=== PATIENT | female | born 1960 | race Caucasian/White ===

== ENCOUNTER 2016-06-03 10:48 | Emergency (ER) | payer MEDICARE ==
[~2016-06-03] VITALS: Ht 162.6 cm; Wt 91.6 kg
[~2016-06-03 10:48] MED LIST: ASPI81TA9 PO; ATOR40TA59 PO; GABA-586 PO; LISI10TA2 PO; LOSA25TA PO; METF500T4 PO; PANT40TA5 PO; SERT100T PO; TRAM50TA PO; TRAZ50TA15 PO
--- NOTE | 2016-06-03 12:38 | PHYS DOC ---
Past Medical History Past Medical History: Asthma, Bronchitis, Diabetes-Type II, Hypertension Past Surgical History: Cholecystectomy, Alcohol Use: None Drug Use: None Adult General Chief Complaint Chief Complaint: OTHER COMPLAINTS HPI HPI 56-year-old female presenting to the emergency department today with left neck pain and swelling fevers chills and a cough for the past few days. She reports having more difficulty swallowing however is able to swallow her secretions and is without stridor. She is not in respiratory distress. Onset 45 days. Location left neck. Duration intermittent. No alleviating factors present. Review of systems is negative for chest pain abdominal pain nausea vomiting diarrhea. All other review of systems is negative unless otherwise noted in history of present illness. Review of Systems Review of Systems SEE ABOVE. Current Medications Current Medications Current Medications Medications (Trade) Dose Ordered Sig/Adriel Start Time Stop Time Status Last Admin Dose Admin Hydromorphone HCl (Dilaudid) 0.5 mg PRN Q1HR PRN 06/03/16 13:30 06/03/16 14:50 DC 06/03/16 13:40 0.5 MG Info (Do NOT chart on this entry -- for MONITORING) 1 each PRN DAILY PRN 06/03/16 13:15 06/03/16 14:50 DC Iohexol (Omnipaque 300 Mg/ml) 70 ml 1X ONCE 06/03/16 13:15 06/03/16 13:16 DC 06/03/16 13:23 70 ML Allergies Allergies Allergies Coded Allergies Type Severity Reaction Last Updated Verified No Known Drug Allergies 04/24/16 No Physical Exam Physical Exam Constitutional: Well developed, well nourished, no acute distress, non-toxic appearance. HENT: Normocephalic, atraumatic, bilateral external ears normal, oropharynx moist, no oral exudates, nose normal. [] Eyes: PERRLA, EOMI, conjunctiva normal, no discharge. Neck: Normal range of motion, patient's left neck is swollen. It is tender to touch. There is no overlying erythema. Skin is normal in color. The patient does not have stridor is swallowing secretions without any difficulty. She does not have a hoarse voice. Her airway is patent. Cardiovascular:Heart rate regular rhythm, no murmur [] Lungs & Thorax: Bilateral breath sounds clear to auscultation [] Abdomen: Bowel sounds normal, soft, no tenderness, no masses, no pulsatile masses. Skin: Warm, dry, no erythema, no rash. [] Back: No tenderness, no CVA tenderness. Extremities: No tenderness, no cyanosis, no clubbing, ROM intact, no edema. [] Neurologic: Alert and oriented X 3, normal motor function, normal sensory function, no focal deficits noted. [] Psychologic: Affect normal, judgement normal, mood normal. Current Patient Data Vital Signs Vital Signs Date Time Temp Pulse Resp B/P Pulse Ox O2 Delivery O2 Flow Rate FiO2 06/03/16 14:30 50 163/76 94 Room Air 06/03/16 13:40 18 06/03/16 11:00 97.5 97.5 Lab Values Laboratory Tests Test 06/03/16 12:39 06/03/16 12:43 White Blood Count 5.0x10^3/uL (4.0-11.0) Red Blood Count 4.87x10^6/uL (3.50-5.40) Hemoglobin 13.2g/dL (12.0-15.5) Hematocrit 39.8% (36.0-47.0) Mean Corpuscular Volume 82fL (79-100) Mean Corpuscular Hemoglobin 27pg (25-35) Mean Corpuscular Hemoglobin Concent 33g/dL (31-37) Red Cell Distribution Width 14.4% (11.5-14.5) Platelet Count 230x10^3/uL (140-400) Neutrophils (%) (Auto) 31% (31-73) Lymphocytes (%) (Auto) 54% (24-48) H Monocytes (%) (Auto) 11% (0-9) H Eosinophils (%) (Auto) 4% (0-3) H Basophils (%) (Auto) 0% (0-3) Neutrophils # (Auto) 1.6x10^3uL (1.8-7.7) L Lymphocytes # (Auto) 2.7x10^3/uL (1.0-4.8) Monocytes # (Auto) 0.5x10^3/uL (0.0-1.1) Eosinophils # (Auto) 0.2x10^3/uL (0.0-0.7) Basophils # (Auto) 0.0x10^3/uL (0.0-0.2) Sodium Level 142mmol/L (136-145) Potassium Level 3.1mmol/L (3.5-5.1) L Chloride Level 106mmol/L (98-107) Carbon Dioxide Level 28mmol/L (21-32) Anion Gap 8 (6-14) 16mmol/L (6-14) H Blood Urea Nitrogen 15mg/dL (7-20) Creatinine 0.5mg/dL (0.6-1.0) L Estimated GFR (Cockcroft-Gault) 126.7 Glucose Level 86mg/dL (70-99) 84mg/dL (70-99) Calcium Level 8.7mg/dL (8.5-10.1) POC Hemoglobin 13.3g/dL (12-15) POC Hematocrit 39% (36-40) POC Sodium 143mmol/L (135-145) POC Potassium 3.1mmol/L (3.5-5.0) L POC Chloride 102mmol/L (98-110) POC Total CO2 29mmol/L (23-32) POC Blood Urea Nitrogen 12mg/dL (8-26) POC Creatinine 0.5mg/dL (0.5-1.4) POC Ionized Calcium (Elba) 1.12mmol/L (1.13-1.32) L Laboratory Tests 06/03/16 12:39 Laboratory Tests 06/03/16 12:39 06/03/16 12:43 EKG EKG [] Radiology/Procedures Radiology/Procedures [] Course & Med Decision Making Course & Med Decision Making Pertinent Labs and Imaging studies reviewed. (See chart for details) [] 56-year-old female presenting to the emergency department today with neck pain and swelling. Airway was intact. Pertinent Physical exam shows no evidence of stridor. Neck has no crepitus to palpation but is tender. No erythema of the skin. Blood work obtained which shows normal CBC. Chemistry panel unremarkable. CT of the neck shows fat stranding suggestive of cellulitis on the anterior wall of the platysmas. It is atypical to not have erythema with cellulitis. The patient was subsequent discharged home with antibiotics to follow-up with her primary care doctor over the next 2-3 days if her symptoms did not improve. She was instructed to return for increased swelling difficult to breathing or difficulty swallowing. Dragon Disclaimer Dragon Disclaimer This electronic medical record was generated, in whole or in part, using a voice recognition dictation system. Departure Departure Impression: Primary Impression: Neck pain Additional Impressions: Neck swelling Cellulitis Disposition: HOME, SELF-CARE Condition: STABLE Referrals: UNKNOWN PCP NAME (PCP) CORWIN WYLIE MD Patient Instructions: Cellulitis Additional Instructions: Thank you for allowing us to participate in your care today. Followup with your primary care physician in 3 days if your symptoms do not improve. If you do not have a primary care provider you can ask for a list of our primary care providers. Return to the emergency department you have any new or concerning findings. This should be evaluated by the primary care physician and any necessary consulting services for continued management within a few days after discharge. Return to emergency room if you have any new or concerning symptoms including but not limited to fever, chills, nausea, vomiting, intractable pain, any new rashes, chest pain, shortness of air, uncontrolled bleeding, difficulty breathing, and/or vision loss. Scripts Cephalexin (Keflex)500 Mg Capsule1 Cap PO BID #14 CAP Prov:LIBAN BOYCE MD 06/03/16 Problem Qualifiers LIBAN BOYCE MD Jun 03, 2016 12:38
[2016-06-03 12:47] LABS: POTASSIUM ISTAT 3.1 mmol/L (3.5-5.0)
[2016-06-03 12:59] LABS: CALCIUM 8.7 mg/dL (8.5-10.1); CREATININE 0.5 mg/dL (0.6-1.0); GFR 126.7; POTASSIUM 3.1 mmol/L (3.5-5.1)
[2016-06-03 13:02] LABS: BASO % 0 % (0-3); EOS % 4 % (0-3); HEMATOCRIT 39.8 % (36.0-47.0); HEMOGLOBIN 13.2 g/dL (12.0-15.5); LYMPH # 2.7 x10^3/uL (1.0-4.8); LYMPH % 54 % (24-48); MEAN CORPUSCULAR HEMOGLOBIN 27 pg (25-35); MEAN CORPUSCULAR HGB CONC 33 g/dL (31-37); MEAN CORPUSCULAR VOLUME 82 fL (79-100); MONO % 11 % (0-9); NEUT % 31 % (31-73); PLATELET COUNT 230 x10^3/uL (140-400); RED BLOOD COUNT 4.87 x10^6/uL (3.50-5.40); RED CELL DISTRIBUTION WIDTH 14.4 % (11.5-14.5)
[2016-06-03] MEDS ORDERED: CONTRAST GIVEN MC PRN (13:15)
[2016-06-03] MEDS ORDERED: IOHEXOL 300 MG/ML 75 ML VIAL IV ONE (13:15)
[2016-06-03] MEDS ORDERED: HYDROMORPHONE 2 MG/ML VIAL. IV PRN (13:30)
--- NOTE | 2016-06-03 13:48 | RAD ---
Indication: Left-sided neck and throat pain and swelling for 2 days. Cough. Dysphagia. Technique: Axial images and coronal and sagittal reformatted images are provided. 70 mL of intravenous Omnipaque 300 was administered without complication. No comparison is available. One or more of the following individualized dose reduction techniques were utilized for this examination: 1. Automated exposure control 2. Adjustment of the mA and/or kV according to patient size 3. Use of iterative reconstruction technique Findings: Orbital contents are unremarkable. There is mild maxillary mucosal thickening. There is mild sphenoid mucosal thickening. Mastoid air cells are clear. Parotid and submandibular glands are unremarkable. There is stranding of the subcutaneous tissues on the left with thickening of the left platysma. There is no organized collection. There is no airway narrowing. There is mild tonsillar enlargement bilaterally. Thyroid is unremarkable. Lymph nodes along the cervical chains are presumed reactive. There is atelectasis dependently. Impression: 1. Stranding of the subcutaneous tissues on the left with thickening of the platysma concerning for cellulitis. No abscess apparent. 2. Mild prominence of the palatine tonsils but no peritonsillar abscess apparent.
[2016-06-03] MEDS ORDERED: CEPH-264 PO (14:22)
[2016-06-03 14:30] VITALS: BP 163/76
== END 2016-06-03 14:41 | disposition home or self-care (01) ==
LOC: ER 10:48
DX: M54.2 Cervicalgia (principal); L03.221 Cellulitis of neck; J45.909 Unspecified asthma, uncomplicated; E11.9 Type 2 diabetes mellitus without complications; I10 Essential (primary) hypertension; R13.10 Dysphagia, unspecified
CPT/HCPCS: 36415; 70491; 80047; 80048; 82947; 85027; 96374; 99285; J1170; Q9967

== ENCOUNTER 2016-09-01 21:36 | Emergency (ER) | payer MEDICARE ==
[~2016-09-01] VITALS: Ht 162.6 cm; Wt 91.6 kg
[~2016-09-01 21:36] MED LIST changes: +ASPI-612 PO; -ASPI81TA9 PO; +CEPH-264 PO
[2016-09-01] MEDS ORDERED: IV NORMAL SALINE 1000ML BAG 1,000 ML IV SCH (22:12)
--- NOTE | 2016-09-01 22:13 | PHYS DOC ---
Past Medical History Past Medical History: Asthma, Bronchitis, Diabetes-Type II, Hypertension Past Surgical History: Cholecystectomy, Alcohol Use: None Drug Use: None Adult General Chief Complaint Chief Complaint: NAUSEA/VOMITING/DIARRHA HPI HPI Patient is a 56 year old female who presents with nausea sinus congestion and requesting her stitches be taken out of her right wrist status post carpal tunnel surgery. She states she had surgery in [place] on August 20 and was told by the surgeon have removed on the or 02 of October. She denies any pain with her wrist, discharge, redness. She states she has sinus congestion and feels that she's having sinus pressure headache. She's had some nauseated and vomited once. She denies any abdominal pain diarrhea constipation. Review of Systems Review of Systems Constitutional: Denies fever or chills [] Eyes: Denies change in visual acuity, redness, or eye pain [] HENT: Denies nasal congestion or sore throat [] Respiratory: Denies cough or shortness of breath [] Cardiovascular: No additional information not addressed in HPI [] GI: Denies abdominal pain, nausea, vomiting, bloody stools or diarrhea [] : Denies dysuria or hematuria [] Musculoskeletal: Denies back pain or joint pain [] Integument: Denies rash or skin lesions [] Neurologic: Denies headache, focal weakness or sensory changes [] Endocrine: Denies polyuria or polydipsia [] Current Medications Current Medications Current Medications Medications (Trade) Dose Ordered Sig/Adriel Start Time Stop Time Status Last Admin Dose Admin Acetaminophen (Tylenol) 1,000 mg 1X ONCE 09/01/16 23:45 09/01/16 23:46 DC Ondansetron HCl (Zofran Odt) 4 mg STK-MED ONCE 09/01/16 23:39 09/01/16 23:40 DC Sodium Chloride 1,000 ml @ 1,000 mls/hr Q1H 09/01/16 22:12 09/01/16 23:11 UNV Allergies Allergies Allergies Coded Allergies Type Severity Reaction Last Updated Verified No Known Drug Allergies 04/24/16 No Physical Exam Physical Exam Constitutional: Well developed, well nourished, no acute distress, non-toxic appearance. [] HENT: Normocephalic, atraumatic, bilateral external ears normal, oropharynx moist, no oral exudates, nose normal. [] Eyes: PERRLA, EOMI, conjunctiva normal, no discharge. [] Neck: Normal range of motion, no tenderness, supple, no stridor. [] Cardiovascular:Heart rate regular rhythm, no murmur [] Lungs & Thorax: Bilateral breath sounds clear to auscultation [] Abdomen: Bowel sounds normal, soft, no tenderness, no masses, no pulsatile masses. [] Skin: Warm, dry, no erythema, no rash. Well-healed incision on the right dorsum of the wrist, no erythema or fluctuance appreciated Back: No tenderness, no CVA tenderness. [] Extremities: No tenderness, no cyanosis, no clubbing, ROM intact, no edema. [] Neurologic: Alert and oriented X 3, normal motor function, normal sensory function, no focal deficits noted. [] Psychologic: Affect normal, judgement normal, mood normal. [] Current Patient Data Vital Signs Vital Signs Date Time Temp Pulse Resp B/P (MAP) Pulse Ox O2 Delivery O2 Flow Rate FiO2 09/01/16 22:25 97.5 57 20 179/77 (111) 94 Room Air 97.5 EKG EKG [] Radiology/Procedures Radiology/Procedures [] Impressions: Suture removal Nausea Sinus headache Course & Med Decision Making Course & Med Decision Making Pertinent Labs and Imaging studies reviewed. (See chart for details) She requested her sutures removed in her right wrist was placed August 20 in [place] after verbal tunnel repair. She states she had a headache and sinus congestion and some nausea. She stated she didn't want to be evaluated for her nausea or have any IVs given. I spoke with her guarding or sinus congestion and headache. She did agree to have Tylenol and Zofran. I removed the sutures and her vitals are within normal limits. She's being discharged home with return precautions and she has any pain in her wrist, discharge, erythema or other concerns return back to ER. Verónica Disclaimer Verónica Disclaimer This electronic medical record was generated, in whole or in part, using a voice recognition dictation system. Departure Departure Impression: Primary Impression: Visit for suture removal Additional Impression: Nausea Disposition: HOME, SELF-CARE Condition: STABLE Referrals: UNKNOWN PCP NAME (PCP) Patient Instructions: Nausea, Adult Additional Instructions: Your nausea was treated with oral dissolvable tablet of Zofran. Your being discharged home with more tablets. You can also take Claritin that you can purchase [id number] for sinus congestion. You will need to follow-up with your primary care physician for your symptoms. We removed the stitches that was in your right wrist. If you develop any swelling, redness, fevers, start having increasing pain or the wound opens up, you need to return back to emergency department for evaluation. Scripts Ondansetron (ZOFRAN ODT) 4 Mg Tab.rapdis 1 TAB SL Q8HRS Y for NAUSEA, #4 TAB Prov: JESSEE AMIN MD 09/01/16 Suture/Staple Removal Indication: Removal of sutures of the right dorsum of the wrist. Procedure: The patient was placed in the appropriate position and the 4 mattress sutures were removed without difficulty. The patient tolerated the procedure well. Complications: No complications noted. Problem Qualifiers JESSEE AMIN MD Sep 01, 2016 22:13
[2016-09-01 22:25] VITALS: BP 179/77
[2016-09-01] MEDS ORDERED: ONDA4TAB10 SL (23:06)
[2016-09-01] MEDS ORDERED: ONDANSETRON ODT 4 MG TAB.RAPDIS. ONE (23:39)
[2016-09-01] MEDS ORDERED: ACETAMINOPHEN 500 MG TABLET PO ONE (23:45)
--- NOTE | 2016-09-02 07:48 | RAD ---
EXAM: Chest one view. HISTORY: Nausea, cough. COMPARISON: 04/24/2016. FINDINGS: A frontal view of the chest is obtained. There are no confluent infiltrates. There is a calcified granuloma in the right base. There is no pneumothorax or pleural effusion. The heart is mildly enlarged. IMPRESSION: 1. Mild cardiomegaly.
== END 2016-09-01 23:56 | disposition home or self-care (01) ==
LOC: ER 21:36
DX: Z48.02 Encounter for removal of sutures (principal); R11.2 Nausea with vomiting, unspecified; R09.81 Nasal congestion; R51 Headache; J45.909 Unspecified asthma, uncomplicated; I10 Essential (primary) hypertension; E11.9 Type 2 diabetes mellitus without complications; Z90.49 Acquired absence of other specified parts of digestive tract; Z98.890 Other specified postprocedural states
CPT/HCPCS: 71010; 99283

== ENCOUNTER 2017-07-20 19:15 | Emergency (ER) | payer OTHER, MEDICARE ==
[2017-07-20] MEDS: IPRATRPIUM/ALBUTEROL 0.5/2.5MG 3 ML NEBU. NEB (19:53)
[2017-07-20 20:30] LABS: ADD MAN DIFF? YES; BASO # 0.1 x10^3/uL (0.0-0.2); BASO % 1 % (0-3); EOS # 0.2 x10^3/uL (0.0-0.7); EOS % 2 % (0-3); HEMATOCRIT 39.2 % (36.0-47.0); HEMOGLOBIN 13.4 g/dL (12.0-15.5); LYMPH % 61 % (24-48); MEAN CORPUSCULAR HEMOGLOBIN 28 pg (25-35); MEAN CORPUSCULAR HGB CONC 34 g/dL (31-37); MEAN CORPUSCULAR VOLUME 82 fL (79-100); MONO # 0.5 x10^3/uL (0.0-1.1); MONO % 6 % (0-9); NEUT # 2.5 x10^3uL (1.8-7.7); NEUT % 30 % (31-73); PLATELET COUNT 249 x10^3/uL (140-400); RED BLOOD COUNT 4.79 x10^6/uL (3.50-5.40); RED CELL DISTRIBUTION WIDTH 14.5 % (11.5-14.5); WHITE BLOOD COUNT 8.2 x10^3/uL (4.0-11.0)
[2017-07-20 20:38] LABS: ANION GAP 10 (6-14); BLOOD UREA NITROGEN 15 mg/dL (7-20); CALCIUM 8.9 mg/dL (8.5-10.1); CARBON DIOXIDE 28 mmol/L (21-32); CHLORIDE 105 mmol/L (98-107); CREATININE 0.8 mg/dL (0.6-1.0); GFR 73.4; GLUCOSE 97 mg/dL (70-99); POTASSIUM 3.3 mmol/L (3.5-5.1); SODIUM 143 mmol/L (136-145)
[2017-07-20 20:45] LABS: ALBUMIN 3.3 g/dL (3.4-5.0); ALK PHOS 100 U/L (46-116); ALT (SGPT) 28 U/L (14-59); AST (SGOT) 21 U/L (15-37); DIRECT BILIRUBIN 0.1 mg/dL (0.0-0.2); TOTAL BILIRUBIN 0.3 mg/dL (0.2-1.0); TOTAL PROTEIN 7.8 g/dL (6.4-8.2)
[2017-07-20 20:47] LABS: TROPONINI < 0.017 ng/mL (0.000-0.055)
[2017-07-20 20:52] LABS: CKMB INDEX 1.6 % (0-4); CKMB MASS 0.8 ng/mL (0.0-3.6); CREATINE KINASE 51 U/L (26-192)
[2017-07-20 20:52] LABS: NT-PRO BNP 147 pg/mL (0-124)
[2017-07-20] MEDS: ACETAMINOPHEN 500 MG TABLET PO (21:11)
[2017-07-20 21:32] LABS: BILIRUBIN,URINE NEGATIVE (NEG); CLARITY,URINE CLEAR; COLOR,URINE YELLOW; GLUCOSE,URINE NEGATIVE (NEG); NITRITE,URINE NEGATIVE (NEG); PROTEIN,URINE NEGATIVE (NEG-TRACE); UROBILINOGEN,URINE 0.2 mg/dL (0.2 mg/dL)
[2017-07-20 21:33] LABS: % EOS 5 % (0-5); % LYMPHS 55 % (24-48); % MONOS 3 % (0-10); % SEGS 37 % (35-66)
[2017-07-20 21:34] LABS: PLT ESTIMATE ADEQUATE (ADEQUATE)
[2017-07-20 21:40] LABS: BACTERIA,URINE 0 /HPF (0-FEW); RBC,URINE >40 /HPF (0-2); SQUAMOUS EPITHELIAL CELL,UR FEW /LPF
[2017-07-20] MEDS: POTASSIUM CHLORIDE 20 MEQ TABLET.ER. PO (22:21)
[2017-07-20 22:28] LABS: INFLUENZA A PATIENT NEGATIVE (NEGATIVE); INFLUENZA B PATIENT NEGATIVE (NEGATIVE); OBC FLU VALID
== END 2017-07-20 23:10 | disposition home or self-care (01) ==
LOC: ER 19:15
DX: J18.9 Pneumonia, unspecified organism (principal); L03.114 Cellulitis of left upper limb; I10 Essential (primary) hypertension; E11.9 Type 2 diabetes mellitus without complications; J44.0 Chronic obstructive pulmonary disease with (acute) lower respiratory infection
CPT/HCPCS: 36415; 71045; 80048; 80076; 81001; 82553; 83880; 84484; 85007; 85025; 87804; 87804-59; 93005; 94640; 99285-25; J7620

== ENCOUNTER 2019-01-05 12:30 | Emergency (ER) | payer SELFPAY ==
[~2019-01-05] VITALS: Ht 162.6 cm; Wt 93.9 kg
[~2019-01-05 12:30] MED LIST changes: +ALBU2.5V8 INH; +AZIT1PAC PO; -GABA-586 PO; +GABA300C18 PO; +METF500T16 PO; -METF500T4 PO; +ONDA4TAB10 SL; -PANT40TA5 PO; +PANT40TA77 PO; +SULF1TAB24 PO; +TRAZ-118 PO; -TRAZ50TA15 PO
[2019-01-05 12:46] VITALS: BP 136/63
[2019-01-05] MEDS ORDERED: HYDR50TA PO (12:55)
[2019-01-05] MEDS ORDERED: TRIA15OI TP (12:56)
--- NOTE | 2019-01-05 12:56 | PHYS DOC ---
Past Medical History Past Medical History: Asthma, Bronchitis, COPD, Diabetes-Type II, Hypertension Past Surgical History: Cholecystectomy, , Other Additional Past Surgical Histo: L WRIST Alcohol Use: None Drug Use: None Adult General Chief Complaint Chief Complaint: INSECT BITE HPI HPI Patient is a 58 year old female who presents with a pruritic rash that begun 2 days ago after spending a night with "this man". Denies any fever. Has tried Benadryl with no relief. Review of Systems Review of Systems Constitutional: Denies fever or chills [] Musculoskeletal: Denies back pain or joint pain [] Integument: Reports rash Neurologic: Denies headache, focal weakness or sensory changes [] All other systems were reviewed and found to be within normal limits, except as documented in this note. Allergies Allergies Allergies Coded Allergies Type Severity Reaction Last Updated Verified No Known Drug Allergies 04/24/16 No Physical Exam Physical Exam Constitutional: Well developed, well nourished, no acute distress, non-toxic appearance. [] Skin: Warm, dry, patient is actively itching. Has excoriated lesions on arms and legs from previous rashes. Currently has new erythematous rash on bilateral upper and lower extremities consistent of bedbugs Back: No tenderness, no CVA tenderness. [] Extremities: No tenderness, no cyanosis, no clubbing, ROM intact, no edema. [] Neurologic: Alert and oriented X 3, normal motor function, normal sensory function, no focal deficits noted. [] Psychologic: Affect normal, judgement normal, mood normal. [] Current Patient Data Vital Signs Vital Signs Date Time Temp Pulse Resp B/P (MAP) Pulse Ox O2 Delivery O2 Flow Rate FiO2 01/05/19 12:46 98.8 74 20 136/63 (87) 94 Room Air 98.8 EKG EKG [] Radiology/Procedures Radiology/Procedures [] Course & Med Decision Making Course & Med Decision Making Pertinent Labs and Imaging studies reviewed. (See chart for details) This is a 58-year-old female patient presenting to the ED today with a bug rash. Discharged with hydroxyzine and triamcinolone cream as supportive measures. Encouraged to clean the house/living environmental. Dragon Disclaimer Dragon Disclaimer This electronic medical record was generated, in whole or in part, using a voice recognition dictation system. Departure Departure Impression: Primary Impression: Bed bug bite Disposition: HOME, SELF-CARE Condition: STABLE Referrals: UNKNOWN PCP NAME (PCP) JOSAFAT CAMPA MD follow up in 2 weeks Patient Instructions: Bedbugs, [id number] Additional Instructions: You were evaluated in the emergency room and noted for bedbugs. Use the prescribed medications as ordered. Follow-up with your doctor in 1-2 weeks. Scripts Triamcinolone Acetonide (TRIAMCINOLONE ACETONIDE 0.1% OINT) 15 Gm Oint...g. 1 ZEKE TP BID for WOUND CARE, #1 TUBE 1 Refill Prov: KG JACOME APRN 01/05/19 Hydroxyzine Hcl (HYDROXYZINE HCL) 50 Mg Tablet 50 MG PO TID, #90 TAB Prov: KG JACOME APRN 01/05/19 Problem Qualifiers Primary Impression: Bed bug bite Encounter type: initial encounter Qualified Codes: W57.XXXA - Bitten or stung by nonvenomous insect and other nonvenomous arthropods, initial encounter KG JACOME APRN Jan 05, 2019 12:56
== END 2019-01-05 13:24 | disposition home or self-care (01) ==
LOC: ER 12:30
DX: S80.862A Insect bite (nonvenomous), left lower leg, initial encounter (principal); S80.861A Insect bite (nonvenomous), right lower leg, initial encounter; S40.862A Insect bite (nonvenomous) of left upper arm, initial encounter; S40.861A Insect bite (nonvenomous) of right upper arm, initial encounter; E11.9 Type 2 diabetes mellitus without complications; J44.9 Chronic obstructive pulmonary disease, unspecified; I10 Essential (primary) hypertension; Z90.49 Acquired absence of other specified parts of digestive tract; W57.XXXA Bitten or stung by nonvenomous insect and other nonvenomous arthropods, initial encounter; Y93.89 Activity, other specified; Y92.89 Other specified places as the place of occurrence of the external cause; Y99.8 Other external cause status
CPT/HCPCS: 99283